=== PATIENT | male | born 1980 | race African-American/Black ===

== ENCOUNTER 2017-02-24 01:55 | Inpatient (IN) | payer OTHER ==
[2017-02-24] VITALS (7 sets, daily range): BP systolic 111–154; BP diastolic 75–107
[~2017-02-24] VITALS: Ht 185.4 cm; Wt 117.5 kg
--- NOTE | ~2017-02-24 | 2DMMODE ---
[facility] [address] [place] [address] 2 D/M-MODE ECHOCARDIOGRAM Name: JOSE MA Room #: 316-P [facility] IN .R.#: [id number] Admission: 02/24/17 Attend Phys: Jeni Loredo Discharge: Date of : 76 Date of Service: 02/25/17 1022 Report #: [id number] THIS REPORT FOR: //name// APPROVED REPORT Study performed: 02/25/2017 08:56:36 EXAM: Comprehensive 2D, Doppler, and color-flow Echocardiogram Patient Location: Echo lab Room #: [facility] Status: routine BSA: 2.37 HR: 80 bpm BP: 149/87 mmHg Rhythm: NSR Other Information Study Quality: Good Indications Cardiomyopathy 2D Dimensions RVDd: 42.88 mm LVEF(%): 31.08 (>50%) IVSd: 14.72 (7-11mm) LVOT Diam: 24.04 (18-24mm) LVDd: 62.62 mm PWd: 15.98 (7-11mm) Ascending Ao: 36.43 (22-36mm) LVDs: 53.24 (25-40mm) Aortic Root: 31.88 mm IVC: 23.00 mm Roberto's LVEF: 31.08 % Volumes Left Atrial Volume (Systole) Single Plane 4CH: 116.50 mL Single Plane 2CH: 101.18 mL LA ESV Index: 49.00 mL/m2 Aortic Valve AoV Peak Jonathan.: 1.27 m/s AO Peak Gr.: 6.41 mmHg LVOT Max P.79 mmHg LVOT Max V: 0.97 m/s MARTÍNEZ Vmax: 3.49 cm2 Mitral Valve E/A Ratio: 4.0 MV Decel. Time: 180.10 ms [facility] [place] [address] 2 D/M-MODE ECHOCARDIOGRAM Name: ANILJOSE Room #: 316-P [facility] IN .R.#: [id number] Admission: 02/24/17 Attend Phys: Jeni Loredo Discharge: Date of : 76 Date of Service: 02/25/17 1022 Report #: [id number] MV E Max Jonathan.: 1.25 m/s MV A Jonathan.: 0.31 m/s MV PHT: 52.23 ms IVRT: 83.04 ms Pulmonary Valve PV Peak Jonathan.: 0.81 m/s PV Peak Gr.: 2.60 mmHg IN End Vmax: 1.92 m/s Pulmonary Vein P Vein S: 0.40 m/s P Vein A: 0.23 m/s P Vein D: 0.53 m/s P Vein A Dur.: 87.7 msec P Vein S/D Ratio: 0.75 Tricuspid Valve TR Peak Jonathan.: 3.38 m/s RAP Estimate: 10.00 mmHg TR Peak Gr.: 45.57 mmHg PA Pressure: 56.00 mmHg Left Ventricle There is global hypokinesis of the left ventricle. Mild to moderate concentric left ventricular hypertrophy. Left ventricular systolic function is severely decreased. LVEF is 25%. Grade IV - fixed restrictive diastolic dysfunction. Right Ventricle Right ventricle is dilated. Right ventricle is mildly hypokinetic. Atria Left atrium is dilated. Right atrium is dilated. Aortic Valve Aortic valve leaflets are normal No aortic regurgitation is present. There is no aortic valvular stenosis. Mitral Valve The mitral valve is normal in structure. Mild mitral regurgitation. No evidence of mitral valve stenosis. Tricuspid Valve The tricuspid valve is normal in structure. Mild tricuspid regurgitation. Pulmonic Valve The pulmonary valve is normal in structure. Trace pulmonic [facility] [address] [place] [address] 2 D/M-MODE ECHOCARDIOGRAM Name: JOSE MA Room #: 316-P [facility] IN .R.#: [id number] Admission: 02/24/17 Attend Phys: Jeni Loredo Discharge: Date of : 76 Date of Service: 02/25/17 1022 Report #: [id number] regurgitation. Great Vessels The aortic root is normal in size. The ascending aorta is normal in size. IVC is dilated and collapses >50% with inspiration. Pericardium There is no pericardial effusion. <Conclusion> Left ventricular systolic function is severely decreased. There is global hypokinesis of the left ventricle. LVEF is 25%. Grade IV - fixed restrictive diastolic dysfunction. Aortic valve leaflets nromal, trileaflet. No aortic regurgitation or stenosis The mitral valve is normal in structure. Mild mitral regurgitation. There is no pericardial effusion. <ELECTRONICALLY SIGNED> By: Alex Monge MD, [facility] 02/25/17 1022 1022 1022 Alex Monge MD, FACC /INF
--- NOTE | ~2017-02-24 | HC ---
[facility] [place] [address] CONSULTATION Name: JOSE MA Room #: 316-P ADM IN M.R.#: [id number] Admission: 02/24/17 Attend Phys: Tavo Castanon MD Discharge: Date of : 76 Report #: [id number] THIS REPORT FOR: //name// CC: MARY physician/PCP Trent Castanon DATE OF SERVICE: 02/24/2017 HISTORY OF PRESENT ILLNESS: This is a very pleasant gentleman who presented to the Emergency Room with complaints of chest discomfort. The patient states that this came on sudden 2 hours ago and was more epigastric in nature and a cramping sensation in the thoracic portion of his back. The patient felt that his back pain merged with the epigastric discomfort and he laid on his stomach for a while without immediate improvement, but did improve over some time. The patient denied any significant associated exertional component. He had been doing quite well prior to that onset. He just had some spicy foods, but he has had that in the past without any issues. He then felt immediate dizzy in the emergency room when he was going out, he became somewhat lightheaded and felt that in his throat and had emesis x 2. He had placard prior to that, but not prior to the onset of symptoms. He denied any exertional chest pain, pressure, tightness or heaviness at all recently. He does have a diagnosis of a non-ischemic cardiomyopathy, but he has had not had any significant workup performed with stress testing or catheterization. He does have hypertension and states he had been taking his medications appropriately. No history of diabetes mellitus. No history of reflux or gastroesophageal reflux disease. PAST MEDICAL HISTORY: 1. Gouty arthritis. 2. Hypertension. 3. Cardiomyopathy with CHF in July. MEDICATIONS: Indocin, Edarbyclor, Coreg, Lasix, Klor-Con and Aldactone. ALLERGIES: NAPROXEN. SOCIAL HISTORY: The patient is single, smokes, consumes alcohol socially. Does not follow a particular exercise regimen or dietary restriction. Electrocardiogram demonstrates normal sinus rhythm with slightly tachycardic rate, non-specific ST T-wave changes. Laboratory demonstrates potassium of 4.1, BUN and creatinine of 13 and 1.2. H and H is 14.2 and 42.9 with platelet count 298,000. PHYSICAL EXAMINATION: [facility] [address] [place] [address] CONSULTATION Name: JOSE MA Room #: 316-P [facility] IN .R.#: [id number] Admission: 02/24/17 Attend Phys: Tavo Castanon MD Discharge: Date of : 76 Report #: [id number] GENERAL: A well-developed, well-nourished male resting comfortably in no acute distress. VITAL SIGNS: Reviewed and noted in the chart. HEENT: Normocephalic, atraumatic. Pupils are equal, round, reactive to light and accommodation. Extraocular muscles are intact. Sclerae and conjunctivae are anicteric. NECK: JVD is normal. Carotid upstrokes are bilaterally symmetrical. No bruits are heard. No thyromegaly. No lymphadenopathy. LUNGS: Clear to auscultation. No wheezes, rhonchi or crackles. No CVA tenderness. CARDIAC: Demonstrates a regular rhythm. Normal first and second heart sounds. No ventricular or atrial gallops, no rubs noted. No murmurs. No lifts or heaves, PMI normal. ABDOMEN: Soft, nontender, nondistended. Normal bowel sounds. EXTREMITIES: Without cyanosis, clubbing or edema. Distal pulses are intact. DTR symmetrical. NEUROLOGIC: Cranial nerves 2-12 are grossly normal and symmetrical. PSYCHIATRIC: Alert, oriented with normal affect. SKIN: Warm and dry. IMPRESSION: 1. Atypical chest pain in an individual that had cardiomyopathy. The patient denied any stress testing, catheterization in view of this. I am going to schedule him for perfusion scan tomorrow, so that we can exclude ischemic regions. His chest pains are very typical in nature, but either way we need to evaluate them most probably. 2. Congestive heart failure. He is on approximate medications, but he has not been carvedilol to 18.75 b.i.d. for 2 weeks and then he will go to 25 mg p.o. b.i.d. We will monitor, so that he does not develop left ventricular decompensation. Echocardiogram will be ordered, so we can further delineate LV function currently. 3. Tobacco abuse and dependence. Discussed with patient the need for smoking cessation and the benefits thereof. We also discussed methods, so that he can be successful at more shortly. 4. Gouty arthritis. Not an issue at this juncture. <ELECTRONICALLY SIGNED> By: Trent Samson MD 02/25/17 0949 2236 0036 Trent Samson MD /nt
--- NOTE | ~2017-02-24 | EKG ---
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 : 1980 Requested By: Moises Carrillo Order Number: [id number] MD: Alex Monge Measurements Intervals [place] Rate: 102 P: 54 NE: 169 QRS: 3 QRSD: 102 T: QT: 363 QTc: 473 Interpretive Statements Sinus tachycardia Probable left atrial enlargement Nonspecific ST and T wave abnormality Compared to ECG 10/19/2016 23:44:28 No significant change was found Electronically Signed On 02-25-2017 8:16:25 CDT by Alex Monge [email or web address] <ELECTRONICALLY SIGNED> By: Alex Monge MD, [facility] 02/25/17 0816 3 3 Alex Monge MD, [facility] /EPI
[~2017-02-24 01:55] MED LIST: ALDACTONE50 MG PO; COREG25 MG PO; EDARBYCLOR 40-1 EACH PO; INDOMETHACIN 5050 MG PO; KLOR-CON 1010 MEQ PO; LASIX 40 MG TAB40 M2 PO; MEDROLDOSEPACK PO; NORCO 10-325 T1 EACH PO
[2017-02-24 02:25] LABS: ABSOLUTE NEUTROPHILS 4.5 thou/uL (1.4-8.2); BASOPHILS 0.9 % (0.0-2.0); EOSINOPHILS 6.9 % (0.0-3.0); HEMATOCRIT 42.9 % (42.0-52.0); HEMOGLOBIN 14.2 gm/dL (14.0-18.0); LYMPHOCYTES 38.3 % (24.0-44.0); MCH 28.7 pg (26.0-34.0); MCHC 33.2 g/dL (28.0-37.0); MCV 86.5 fL (80.0-100.0); PLATELET COUNT 298 thou/uL (150-400); POLYS 45.9 % (36.0-66.0); RBC 4.95 mil/uL (4.50-6.00); RDW 15.9 % (10.5-14.5); WBC 9.7 thou/uL (4.0-11.0)
[2017-02-24 02:27] LABS: MANUAL DIFF NO
[2017-02-24 02:35] LABS: ANION GAP 10 mmol/L (7-16); BUN 13 mg/dL (7-18); CHLORIDE 106 mmol/L (98-107); CO2 26 mmol/L (21-32); CREATININE 1.2 mg/dL (0.7-1.3); GLUCOSE 111 mg/dL (74-106); POTASSIUM 4.1 mmol/L (3.5-5.1); SODIUM 142 mmol/L (136-145)
[2017-02-24 02:44] LABS: ALKALINE PHOSPHATASE 69 U/L (46-116); MAGNESIUM 1.9 mg/dL (1.8-2.4); SGPT 32 U/L (30-65); TOTAL BILIRUBIN 0.3 mg/dL (<0.1-1.0); TOTAL PROTEIN 7.3 g/dL (6.4-8.2); TROPONIN-I < 0.04 ng/mL (<0.04-0.07)
[2017-02-24 02:57] LABS: SGOT 37 U/L (15-37)
[2017-02-24 03:25] LABS: APTT 29.1 Seconds (24.5-32.8); PROTIME 9.6 Seconds (9.3-11.4)
[2017-02-25] VITALS: BP 112/72
[2017-02-25 04:56] LABS: HEMOGLOBIN 12.6 gm/dL (14.0-18.0); MCHC 32.2 g/dL (28.0-37.0); MCV 87.1 fL (80.0-100.0); RBC 4.49 mil/uL (4.50-6.00); WBC 15.3 thou/uL (4.0-11.0)
[2017-02-25 05:00] VITALS: BP 117/79
[2017-02-25 05:04] LABS: CALCIUM 8.9 mg/dL (8.5-10.1); CREATININE 1.1 mg/dL (0.7-1.3); POTASSIUM 3.8 mmol/L (3.5-5.1)
[2017-02-25 07:18] VITALS: BP 119/78
[2017-02-25 15:58] VITALS: BP 104/64
[2017-02-25 20:00] VITALS: BP 122/86
[2017-02-26 08:59] VITALS: BP 115/84
[2017-02-26 18:50] VITALS: BP 115/84
== END 2017-02-26 19:37 | disposition home or self-care (01) | DRG 313 ==
LOC: ER 01:55 → 3N 02:38 → EROBS 02:38 → 3N 03:23 → EROBS 03:23 → 3N 03:25
PROVIDERS: Emergency Medicine; Hospitalist; Internal Medicine
DX: R07.89 Other chest pain (principal); I42.9 Cardiomyopathy, unspecified; I50.42 Chronic combined systolic (congestive) and diastolic (congestive) heart failure; I11.0 Hypertensive heart disease with heart failure; M10.9 Gout, unspecified; F17.210 Nicotine dependence, cigarettes, uncomplicated; K82.8 Other specified diseases of gallbladder; I25.10 Atherosclerotic heart disease of native coronary artery without angina pectoris; L40.9 Psoriasis, unspecified; Z88.8 Allergy status to other drugs, medicaments and biological substances
CPT/HCPCS: 10096

== ENCOUNTER 2017-06-17 01:02 | Emergency (ER) | payer OTHER ==
[~2017-06-17] VITALS: Ht 185.4 cm; Wt 132.4 kg
--- NOTE | ~2017-06-17 | EKG ---
[address] [place] [place] [address] ELECTROCARDIOGRAM REPORT Name: JOSE MA [id number] Admission: 06/17/17 Attend Phys: Discharge: 06/17/17 Date of : 76 Report #: [id number] THIS REPORT FOR: //name// 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
[2017-06-17] MEDS ORDERED: ASPIR 8181 MG PO (01:19)
[2017-06-17] MEDS ORDERED: PRINIVIL20 M1 PO (01:19)
[2017-06-17] MEDS ORDERED: ALLOPURINOL 10100 M1 PO (01:20)
[2017-06-17 01:22] LABS: ABSOLUTE NEUTROPHILS 5.5 thou/uL (1.4-8.2); BASOPHILS 0.8 % (0.0-2.0); EOSINOPHILS 3.6 % (0.0-3.0); HEMATOCRIT 41.2 % (42.0-52.0); LYMPHOCYTES 38.8 % (24.0-44.0); MCH 30.2 pg (26.0-34.0); MCHC 33.9 g/dL (28.0-37.0); MONOCYTES 5.7 % (1.0-8.0); PLATELET COUNT 330 thou/uL (150-400); POLYS 51.1 % (36.0-66.0); RBC 4.63 mil/uL (4.50-6.00); RDW 16.6 % (10.5-14.5); WBC 10.7 thou/uL (4.0-11.0)
[2017-06-17 01:23] LABS: MANUAL DIFF NO
[2017-06-17 01:30] LABS: ANION GAP 14 mmol/L (7-16); BUN 12 mg/dL (7-18); CALCIUM 8.5 mg/dL (8.5-10.1); CHLORIDE 106 mmol/L (98-107); CO2 23 mmol/L (21-32); CREATININE 1.3 mg/dL (0.7-1.3); GLUCOSE 130 mg/dL (74-106); POTASSIUM 3.8 mmol/L (3.5-5.1); SODIUM 143 mmol/L (136-145)
[2017-06-17 01:40] LABS: TROPONIN-I < 0.04 ng/mL (<0.06)
== END 2017-06-17 05:50 | disposition home or self-care (01) ==
LOC: ER 01:02
PROVIDERS: Emergency Medicine
DX: R07.9 Chest pain, unspecified (principal); F17.210 Nicotine dependence, cigarettes, uncomplicated; I10 Essential (primary) hypertension; I50.9 Heart failure, unspecified; I25.2 Old myocardial infarction; Z88.6 Allergy status to analgesic agent

== ENCOUNTER 2019-07-15 06:45 | Inpatient (IN) | payer OTHER ==
[2019-07-15] VITALS (9 sets, daily range): BP systolic 104–151; BP diastolic 59–94
[~2019-07-15] VITALS: Ht 185.4 cm; Wt 114.5 kg
[~2019-07-15 06:45] MED LIST changes: +ALLOPURINOL 10100 M1 PO; +ASPIR 8181 MG PO; +PRINIVIL20 M1 PO
[2019-07-15] MEDS ORDERED: ENTRESTO 24 MG1 EACH PO (07:38)
[2019-07-15 07:39] LABS: ABSOLUTE NEUTROPHILS 5.2 thou/uL (1.4-8.2); BASOPHILS 0.7 % (0.0-2.0); EOSINOPHILS 3.5 % (0.0-3.0); HEMATOCRIT 46.8 % (42.0-52.0); HEMOGLOBIN 15.4 gm/dL (14.0-18.0); LYMPHOCYTES 29.8 % (24.0-44.0); MCH 29.3 pg (26.0-34.0); MCHC 32.9 g/dL (28.0-37.0); MCV 88.9 fL (80.0-100.0); MONOCYTES 8.8 % (1.0-8.0); PLATELET COUNT 309 thou/uL (150-400); POLYS 57.2 % (36.0-66.0); RBC 5.27 mil/uL (4.50-6.00); RDW 14.4 % (10.5-14.5)
[2019-07-15 07:40] LABS: CALCIUM 9.6 mg/dL (8.5-10.1); INR 1.1; POTASSIUM 3.9 mmol/L (3.5-5.1); PROTIME 11.1 Seconds (9.3-11.4)
[2019-07-15 07:46] LABS: ALBUMIN 4.4 g/dL (3.4-5.0); TOTAL BILIRUBIN 0.6 mg/dL (<0.1-1.0); TOTAL PROTEIN 8.4 g/dL (6.4-8.2)
--- NOTE | 2019-07-15 10:45 | NUR ---
TO UNIT FROM EP LAB/PACU BY BED, REPORT FROM GISELLA ZAIDI, FAMILY IN TOW. DENIES PAIN. INCISION SITE LEFT CHEST WELL APPORXIMATED, OPEN TO AIR, CLOSED WITH DERMABOND AND STERRY STRIPS. ORIENTED TO UNIT AND ROOM. SR PER TELE. WILL CONTINUE TO FOLLOW CLOSELY.
[2019-07-16] VITALS (11 sets, daily range): BP systolic 107–141; BP diastolic 63–87
--- NOTE | 2019-07-16 05:46 | NUR ---
ASSUMED PT CARE AT 1900, PT IS ALERT AND ORIENTEDX4, ASSESSMENTS CHARTED, DENIES SOB, HEADACHE OR LIGHTHEADEDNESS, COMPLAINS OF NON-CARDIAC LEFT CHEST PAIN, PAIN MEDICATION GIVED PRN ORDERED, SURGICAL SITE REMAIN INTACT WITH NO DRAINAGE, UP TO THE BATHROOM WITHOUT DIFFICULTY, WILL CONTINUE TO MONITOR
--- NOTE | 2019-07-16 18:33 | NUR ---
PT CARE ASSUMED APPROX 0700. PT DENIES PAIN AND SOA. VSS. UP WITH SBA. BEDREST AT THIS TIME POST DEVICE REVISION. PT TOLERATED PROCEDURE WELL PER EP LAB REPORT. STERILE DRESSING TO LEFT CHEST IS C/D/I. NO DISTRESS NOTED.
[2019-07-17] VITALS: BP 96/59
[2019-07-17 04:29] VITALS: BP 112/70
--- NOTE | 2019-07-17 05:03 | NUR ---
ASSESSMENTS CHARTED, MEDS GIVEN CHARTED. PATIENT ON STRICT BEDREST DURING SHIFT AFTER LEAD REVISIONS PROCEDURE EARLIER IN THE DAY. PACEMAKER SITE IS COVERED WITH SURGICAL DRESSING OF GAUZE. PATIENT A-PACED ON TELEMETRY, LUNGS ARE CLEAR ON ROOM AIR. USING URINAL. PATIENT STATED AT START OF SHIFT THAT HE DOES NOT LIKE TAKING PAIN MEDS EVEN THOUGH PAIN WAS 5/10. WHEN HE WAS READY TO GO ASLEEP, HE REQUESTED PAIN MED. GIVEN CHARTED. PLAN OF CARE IS FOR AM CHEST XRAY, PACEMAKER INTERREGATION, THEN HOME IF ALL IS WELL.
[2019-07-17 08:00] VITALS: BP 117/77
[2019-07-17 08:05] VITALS: BP 117/77
[2019-07-17 11:18] VITALS: BP 117/77
[2019-07-17 11:19] VITALS: BP 117/77
--- NOTE | 2019-07-23 13:03 | P ---
[facility] [place] [address] [place] [address] PROCEDURE REPORT Name: JOSE MA Room #: 215-P [facility] IN M.R.#: [id number] Admission: 07/16/19 Attend Phys: Mono Cruz MD Discharge: 07/17/19 Date of : 76 Report #: [id number] THIS REPORT FOR: //name// CC: FAM unknown Mono Cruz DATE OF SERVICE: 07/15/2019 PREOPERATIVE DIAGNOSIS: Nonischemic cardiomyopathy. POSTOPERATIVE DIAGNOSIS: Nonischemic cardiomyopathy. PROCEDURES PERFORMED: Dual-chamber ICD implantation. HISTORY OF PRESENT ILLNESS: The patient is a 38-year-old male with a history of a nonischemic cardiomyopathy, class 2-3 heart failure symptoms, who has been on optimal medical therapy and his EF is less than 35%. He meets criteria for ICD implantation for primary prevention of sudden cardiac . He also has documented symptomatic sinus bradycardia and will also have a dual chamber device placed. ANESTHESIA: The patient underwent MAC anesthesia with no anesthesia related complications. DESCRIPTION OF PROCEDURE: The patient underwent informed consent. We discussed the details of the procedure including the risks, which include but not limited to bleeding, infection, vascular damage, cardiac perforation and pneumothorax. I have reviewed with him the [employer] shared decision form for ICD implantation and he understood this and agreed with proceeding. The patient was brought to the EP laboratory in a fasting and sedated state, prepped and draped in a sterile fashion. He underwent a venogram showing patency of left axillary vein and received IV vancomycin for antibiotic prophylaxis. His venogram showed that his subclavian vein was slightly higher than usual. Next, I injected lidocaine at the incision site. Incision was made, pocket was created over the prepectoral fascia and access was obtained once to the left axillary vein. A second access turned out to be quite challenging, I hit the artery 2 or 3 times and therefore I did the double wire technique via the sheath and then obtained [address] Next, I placed a lead into the right ventricular apex and a lead into the right atrial appendage both with adequate pacing and sensing thresholds. Leads were sutured to prepectoral fascia and access was obtained twice to the prepectoral fascia. Next, the device was connected, tested and found to be functioning normally, placed in the pocket, irrigated the pocket with vancomycin. The pocket was closed in 3 layers using 2-0 for the deep layer, 3-0 for the mid layer, and surgical glue for the outer skin layer. Instead of glue, I used Steri-Strips as [facility] [address] [place] [address] PROCEDURE REPORT Name: JOSE MA Room #: 215-P [facility]#: [id number] Admission: 07/16/19 Attend Phys: Mono Cruz MD Discharge: 07/17/19 Date of : 76 Report #: [id number] he had pretty thick skin that was difficult to oppose at the edges. The patient awoke neurologically and hemodynamically intact. No complications and no significant bleed. The implanted device was a [employer] model #IS313833O, serial #[id number]. Atrial lead, [employer] model #2088TC, 52 cm, serial #[id number] and the RV lead was a [employer] Durata model #7122Q, 58 cm, serial #[id number]. The atrial lead demonstrated P-wave of 4.9 millivolts, pacing impedance of 640 ohms, pacing threshold 0.5 volts at 0.5 milliseconds. The RV lead demonstrated R-wave of 11.7 millivolts, pacing impedance of 540 ohms, pacing threshold of 0.5 volts at 0.5 milliseconds. The device was programmed to the DDDR 60-130 mode. The VT zone was set at 180-220 beats per minute followed by a max output shocks. VF zone was set greater than 220 beats per minute with ATP while charging followed by max output shocks. CONCLUSIONS: 1. Successful dual-chamber ICD implantation. 2. Satisfactory atrial and ventricular pacing and sensing thresholds. <ELECTRONICALLY SIGNED> By: Mono Cruz MD 07/23/19 1303 0926 1057 Mono Cruz MD /nt
--- NOTE | 2019-07-23 13:03 | P ---
[facility] [place] [address] [place] [address] PROCEDURE REPORT Name: JOSE MA Room #: 215-P [facility] IN M.R.#: [id number] Admission: 07/16/19 Attend Phys: Mono Cruz MD Discharge: 07/17/19 Date of : 76 Report #: [id number] THIS REPORT FOR: //name// CC: FAM unknown Mono Cruz ICD LEAD REVISION HISTORY: The patient is 38-year-old status post ICD implantation yesterday. Today, he has decreased R waves and higher RV pacing thresholds. He is here for lead revision. ANESTHESIA: The patient underwent MAC anesthesia with no anesthesia related complications. DESCRIPTION OF PROCEDURE: The patient underwent informed consent. We discussed the details of the procedure including the risks, which include but not limited to bleeding, infection. The patient understood these risks and is willing to proceed. The patient was brought to EP laboratory in fasting and sedated state, prepped and draped in sterile fashion. He received IV antibiotics. I then injected lidocaine at the incision site. The incision was reopened. I removed all the old sutures. Next, I cut the sutures from the RV lead under fluoroscopy, it appeared that the slack was somewhat back but the atrial lead position looked fine. I then repositioned the lead at the new spot with good pacing and sensing thresholds. I left a good amount of slack in the lead. I sutured the suture sleeve x 3 to ensure that he cannot move the lead again. I then connected the device back to the leads, they were tested and found to be functioning normally. I placed an antibiotic pouch TYRX into the pocket and then I closed the pocket in 2 layers using 2-0 for the deep layer, 3-0 for the middle layer and surgical glue at the outer skin layer. There were no procedure related complications. The same device and leads were utilized as of yesterday. The P waves were 5 millivolts, pacing impedance 630 ohms and pacing threshold was 0.75 volts at 0.5 milliseconds. The RV lead demonstrated an R-wave of 11.7 millivolts, pacing impedance of 650 ohms and a pacing threshold of 0.5 milliseconds. The device was programmed back to its nominal settings. CONCLUSION: 1. Successful lead revision. 2. Successful implantation of an antibiotic TYRX pouch. <ELECTRONICALLY SIGNED> By: Mono Cruz MD 07/23/19 1303 1458 2132 Mono Cruz MD /nt
[2019-07-28] MEDS ORDERED: PANTOPRAZOLE SO40 M1 PO (14:23)
[2019-07-28] MEDS ORDERED: ACETAMINOPHEN325 M1 PO (14:23)
[2019-07-28] MEDS ORDERED: KEFLEX500 M1 PO (14:59)
== END 2019-07-17 12:50 | disposition home or self-care (01) | DRG 227 ==
LOC: CATH 06:45 → 2N 10:24 → CATH 10:53 → 2N 07-16 13:15
PROVIDERS: ADMIT Internal Medicine Cardiovascular Disease
DX: I25.5 Ischemic cardiomyopathy (principal); T82.120A Displacement of cardiac electrode, initial encounter; I49.5 Sick sinus syndrome; Y83.1 Surgical operation with implant of artificial internal device as the cause of abnormal reaction of the patient, or of later complication, without mention of misadventure at the time of the procedure; Y92.230 Patient room in hospital as the place of occurrence of the external cause; E66.9 Obesity, unspecified; I11.0 Hypertensive heart disease with heart failure; I50.9 Heart failure, unspecified; M10.9 Gout, unspecified; F17.210 Nicotine dependence, cigarettes, uncomplicated; Z88.8 Allergy status to other drugs, medicaments and biological substances; Z68.33 Body mass index [BMI] 33.0-33.9, adult; I25.2 Old myocardial infarction; Z82.49 Family history of ischemic heart disease and other diseases of the circulatory system

== ENCOUNTER 2019-07-25 22:27 | Emergency (ER) | payer OTHER ==
[~2019-07-25] VITALS: Ht 185.4 cm; Wt 102.1 kg
[~2019-07-25 22:27] MED LIST changes: +ENTRESTO 24 MG1 EACH PO
[2019-07-26 00:37] VITALS: BP 109/55
[2019-07-26] MEDS ORDERED: SPIRONOLACTONE50 MG PO (17:05)
[2019-07-26] MEDS ORDERED: CRESTOR40 MG PO (17:05)
[2019-07-26] MEDS ORDERED: ENTRESTO 49 MG1 EACH PO (17:05)
[2019-07-26] MEDS ORDERED: ALLOPURINOL 10100 M3 PO (17:05)
[2019-07-26] MEDS ORDERED: COREG25 M1 PO (17:06)
== END 2019-07-26 00:43 | disposition home or self-care (01) ==
LOC: ER 22:27
DX: T82.837A Hemorrhage due to cardiac prosthetic devices, implants and grafts, initial encounter (principal); I11.0 Hypertensive heart disease with heart failure; I50.9 Heart failure, unspecified; M10.9 Gout, unspecified; F17.210 Nicotine dependence, cigarettes, uncomplicated; Z88.8 Allergy status to other drugs, medicaments and biological substances; Y83.8 Other surgical procedures as the cause of abnormal reaction of the patient, or of later complication, without mention of misadventure at the time of the procedure; Y92.89 Other specified places as the place of occurrence of the external cause

== ENCOUNTER → 2019-08-27 | Outpatient (CLI) | payer OTHER ==
[~2019-08-27] MED LIST changes: +ACETAMINOPHEN325 M1 PO; +ALLOPURINOL 10100 M3 PO; +COREG25 M1 PO; +CRESTOR40 MG PO; +ENTRESTO 49 MG1 EACH PO; +KEFLEX500 M1 PO; +PANTOPRAZOLE SO40 M1 PO; +SPIRONOLACTONE50 MG PO
== END ==
LOC: SJCVC 09:57
DX: R94.31 Abnormal electrocardiogram [ECG] [EKG] (principal); I11.0 Hypertensive heart disease with heart failure; I50.42 Chronic combined systolic (congestive) and diastolic (congestive) heart failure; I42.0 Dilated cardiomyopathy; E78.5 Hyperlipidemia, unspecified; F17.200 Nicotine dependence, unspecified, uncomplicated; Z79.899 Other long term (current) drug therapy

== ENCOUNTER → 2019-10-21 | Outpatient (CLI) | payer OTHER | LOC: SJCVC 13:43 | DX: I49.9 Cardiac arrhythmia, unspecified (principal); R94.31 Abnormal electrocardiogram [ECG] [EKG]; T82.9XXA Unspecified complication of cardiac and vascular prosthetic device, implant and graft, initial encounter; I42.8 Other cardiomyopathies; I11.0 Hypertensive heart disease with heart failure; I50.42 Chronic combined systolic (congestive) and diastolic (congestive) heart failure; E78.5 Hyperlipidemia, unspecified; E66.9 Obesity, unspecified; F17.210 Nicotine dependence, cigarettes, uncomplicated; Z82.49 Family history of ischemic heart disease and other diseases of the circulatory system; Z95.810 Presence of automatic (implantable) cardiac defibrillator; Z79.899 Other long term (current) drug therapy; Y83.8 Other surgical procedures as the cause of abnormal reaction of the patient, or of later complication, without mention of misadventure at the time of the procedure; Y92.89 Other specified places as the place of occurrence of the external cause ==

== ENCOUNTER → 2020-02-29 | Outpatient (CLI) | payer OTHER | LOC: SJCVC 10:49 | PROVIDERS: ATTEND Internal Medicine | DX: R94.31 Abnormal electrocardiogram [ECG] [EKG] (principal); R00.1 Bradycardia, unspecified; I11.0 Hypertensive heart disease with heart failure; I50.42 Chronic combined systolic (congestive) and diastolic (congestive) heart failure; I42.0 Dilated cardiomyopathy; E78.5 Hyperlipidemia, unspecified; F17.210 Nicotine dependence, cigarettes, uncomplicated; Z79.899 Other long term (current) drug therapy ==

== ENCOUNTER → 2020-03-07 | Outpatient (CLI) | payer OTHER | LOC: LAB 08:43 | PROVIDERS: ATTEND Internal Medicine Cardiovascular Disease | DX: Z01.812 Encounter for preprocedural laboratory examination (principal); Z20.828 Contact with and (suspected) exposure to other viral communicable diseases ==

== ENCOUNTER 2020-03-10 09:25 | Observation (INO) | payer OTHER ==
[~2020-03-10] VITALS: Ht 185.4 cm; Wt 121.6 kg
[2020-03-10 10:16] VITALS: BP 130/90
[2020-03-10 10:20] LABS: ABSOLUTE NEUTROPHILS 4.8 thou/uL (1.4-8.2); BASOPHILS 0.4 % (0.0-2.0); EOSINOPHILS 5.3 % (0.0-3.0); HEMATOCRIT 41.9 % (42.0-52.0); HEMOGLOBIN 13.7 gm/dL (14.0-18.0); LYMPHOCYTES 25.6 % (24.0-44.0); MCH 31.1 pg (26.0-34.0); MCHC 32.8 g/dL (28.0-37.0); MCV 94.8 fL (80.0-100.0); MONOCYTES 8.4 % (1.0-8.0); PLATELET COUNT 290 thou/uL (150-400); POLYS 60.3 % (36.0-66.0); RBC 4.42 mil/uL (4.50-6.00); RDW 14.8 % (10.5-14.5); WBC 7.9 thou/uL (4.0-11.0)
[2020-03-10 10:26] LABS: CALCIUM 8.8 mg/dL (8.5-10.1); CREATININE 0.8 mg/dL (0.7-1.3)
[2020-03-10 10:32] LABS: ALBUMIN 3.9 g/dL (3.4-5.0); TOTAL BILIRUBIN 0.3 mg/dL (0.2-1.0); TOTAL PROTEIN 7.3 g/dL (6.4-8.2)
[2020-03-10 10:33] LABS: APTT 35.2 Seconds (24.5-32.8); PROTIME 10.4 Seconds (9.3-11.4)
[2020-03-10 14:25] VITALS: BP 141/95
--- NOTE | 2020-03-10 15:26 | NUR ---
pt new to [facility] today after have cardiac device placement. noted cardiac education with pt mom on arm restriction. no anticipated needs. dcp home with mom.
--- NOTE | 2020-03-10 16:33 | NUR ---
ASSESSMENT CHARTED - MEDS PER AUG - PT TO THE UNIT POST PACEMAKER PLACEMENT IN THE RIGHT SIDE OF CHEST. NO CO'S OF PAIN OR NAUSEA. NELSON DIET AND FLUIDS. REMAINS ON BEDREST WITH HOB ELEVATED. VSS. NO CO'S AT THE PRESENT TIME. PT ORUIENTED TO ROOM AND BEDSPACE.
[2020-03-10 19:37] VITALS: BP 133/76
[2020-03-11 00:25] VITALS: BP 118/67
[2020-03-11 04:27] VITALS: BP 116/69
--- NOTE | 2020-03-11 06:20 | NUR ---
ASSUMED CARE OF PT AT 1900; ICD/PACEMAKER SITE WITH DERMABOND AND REMAINS SEALED AND INTACT AND NO DRAINAGE NOTED; RESTING QUIETLY WITHOUT ANY C/O OF PAIN; VSS AND TELEMETRY SHOWS SA/SB/SR; PROGRESSING WELL TOWARDS D/C GOALS; CONTINUE TO ASSESS CLOSELY.
[2020-03-11 08:42] VITALS: BP 130/75
[2020-03-11 10:46] VITALS: BP 130/756
--- NOTE | 2020-03-11 12:05 | NUR ---
PT ASSESSED AT START OF SHIFT. DOING WELL. MINIMAL DISCOMFORT AROUND IMPLANT AND DECLINED TYLENOL. IMMOBILIZER IN PLACE. CXR TAKEN AND NEGATIVE. SR ON MONITOR. DISCHARGE INSTRUCTIONS GIVEN TO PT. MOTHER HERE TO PICKUP PT AT THIS TIME.
--- NOTE | 2020-03-13 08:14 | P ---
[facility] [place] [address] [place] [address] PROCEDURE REPORT Name: JOSE MA Room #: 201-P [facility] M..#: [id number] Admission: 03/10/20 Attend Phys: Mono Cruz MD Discharge: 03/11/20 Date of : 76 Report #: [id number] THIS REPORT FOR: cc: MARY - Digna family physician/PCP MARY - Digna family physician/PCP Mono Cruz MD ~ CC: MARY physician/PCP Mono Cruz DATE OF SERVICE: 03/10/2020 PROCEDURE: ICD implantation. PREOPERATIVE DIAGNOSIS: Nonischemic cardiomyopathy. POSTOPERATIVE DIAGNOSIS: Nonischemic cardiomyopathy. HISTORY: The patient is 39 years old, here for reimplantation of an ICD for primary prevention of sudden cardiac . ANESTHESIA: The patient underwent MAC anesthesia with no anesthesia related complications. DESCRIPTION OF PROCEDURE: The patient underwent informed consent. We discussed the details of the procedure including the risks, which include but not limited to bleeding, infection, vascular damage, cardiac perforation and pneumothorax. We emphasized the importance of arm restrictions to prevent his pocket from reopening. He and his mother reported that he would be compliant ____. The patient was brought to EP laboratory in fasting and sedated state, prepped and draped in sterile fashion, received IV antibiotics and underwent a venogram showing patency of the axillary vein. Next, lidocaine was injected below the level of the right clavicle. Incision was made, pocket was created over the prepectoral fascia and access was obtained once to the right axillary vein using the extrathoracic approach with sheaths positioned using the modified Seldinger technique and then the lead was positioned in the right ventricular apex. A long lead was used despite this being a right-sided implant as he had a very large heart. This had adequate pacing and sensing thresholds. I placed a good amount of slack in the leads. Lead was sutured to the prepectoral fascia using Ethibond suture and the pocket was irrigated. Device was connected, placed in the pocket. Pocket was closed in 3 layers using 2-0 for the deep layer, 3-0 for the middle layer and 4-0 for the subcuticular layer. Surgical glue was placed to the outer skin layer. The patient awoke neurologically and hemodynamically intact. No complications ____ significant bleeding. The implanted device was a [employer], model #YMXH5M3, serial #[id number]. [facility] [address] [place] [address] PROCEDURE REPORT Name: JOSE MA Room #: 201-P [facility] Elizabeth M.Ho.#: [id number] Admission: 03/10/20 Attend Phys: Mono Cruz MD Discharge: 03/11/20 Date of : 76 Report #: [id number] RV lead was a [employer] model #6947, 62 cm, serial #[id number]. The ventricular lead demonstrated R waves of 9.7 millivolts, pacing impedance 608 ohms, pacing threshold 0.4 volts at 0.5 milliseconds and the device was programmed with a VT zone from 200-240 beats per minute with 3 rounds of burst followed by 3 rounds of ramp followed by max output shocks. The VF zone was set at greater than 240 beats per minute with ATP while charging followed by max output shocks. CONCLUSIONS: 1. Successful single chamber ICD implantation. 2. Satisfactory ventricular pacing and sensing thresholds. <ELECTRONICALLY SIGNED> By: Mono Cruz MD 03/13/20 0814 1341 1455 Mono Cruz MD /nt
== END 2020-03-11 12:12 | disposition home or self-care (01) ==
LOC: CATH 09:25 → 2N 14:53 → CATH 15:42 → 2N 03-11 12:12
PROVIDERS: ADMIT Internal Medicine Cardiovascular Disease; ATTEND Internal Medicine Cardiovascular Disease
DX: I42.8 Other cardiomyopathies (principal); I11.0 Hypertensive heart disease with heart failure; I50.9 Heart failure, unspecified; I25.10 Atherosclerotic heart disease of native coronary artery without angina pectoris; I25.2 Old myocardial infarction; M10.9 Gout, unspecified; Z79.899 Other long term (current) drug therapy

== ENCOUNTER → 2020-08-30 | Outpatient (CLI) | payer OTHER | LOC: SJCVCIMAG 08-25 09:38 | PROVIDERS: ATTEND Internal Medicine | DX: I11.0 Hypertensive heart disease with heart failure (principal); I50.42 Chronic combined systolic (congestive) and diastolic (congestive) heart failure; I42.0 Dilated cardiomyopathy; E78.5 Hyperlipidemia, unspecified; Z95.810 Presence of automatic (implantable) cardiac defibrillator; Z88.8 Allergy status to other drugs, medicaments and biological substances ==

== ENCOUNTER 2021-02-12 02:01 | Emergency (ER) | payer OTHER ==
[~2021-02-12] VITALS: Ht 185.4 cm; Wt 125.2 kg
[2021-02-12 03:35] LABS: ABSOLUTE NEUTROPHILS 2.1 thou/uL (1.4-8.2); BASOPHILS 0.4 % (0.0-2.0); EOSINOPHILS 3.9 % (0.0-3.0); HEMATOCRIT 40.8 % (42.0-52.0); HEMOGLOBIN 13.7 gm/dL (14.0-18.0); MCH 31.2 pg (26.0-34.0); MCHC 33.6 g/dL (28.0-37.0); MONOCYTES 9.6 % (1.0-8.0); PLATELET COUNT 213 thou/uL (150-400); POLYS 45.1 % (36.0-66.0); RBC 4.39 mil/uL (4.50-6.00); RDW 14.4 % (10.5-14.5); WBC 4.6 thou/uL (4.0-11.0)
[2021-02-12 03:48] LABS: CALCIUM 8.4 mg/dL (8.5-10.1); CREATININE 1.1 mg/dL (0.7-1.3); POTASSIUM 3.8 mmol/L (3.5-5.1)
[2021-02-12 03:51] LABS: ALBUMIN 3.6 g/dL (3.4-5.0); TOTAL BILIRUBIN 0.3 mg/dL (0.2-1.0)
[2021-02-12 05:24] LABS: URINE BILIRUBIN NEGATIVE (Negative); URINE BLOOD NEGATIVE (Negative); URINE CLARITY CLEAR; URINE COLOR YELLOW; URINE GLUCOSE-RANDOM* NEGATIVE (Negative); URINE KETONES NEGATIVE (Negative); URINE LEUKOCYTES-REFLEX NEGATIVE (Negative); URINE NITRITE-REFLEX NEGATIVE (Negative); URINE PROTEIN (DIPSTICK) NEGATIVE (Negative); URINE SPECIFIC GRAVITY >= 1.030 (1.005-1.035); URINE UROBILINOGEN 0.2 E.U./dl (0.2-1.0)
[2021-02-12] MEDS ORDERED: REGLAN 5 MG TAB5 MG PO (05:52)
[2021-02-12] MEDS ORDERED: PEPCID20 MG PO (05:52)
[2021-02-12 05:53] VITALS: BP 122/78
--- NOTE | 2021-02-12 07:31 | EKG ---
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 <ELECTRONICALLY SIGNED> By: Arpit Garcia MD, FACC 02/12/21 [id number] Arpit Garcia MD, [facility] /EPI
== END 2021-02-12 05:58 | disposition home or self-care (01) ==
LOC: ER 02:01
PROVIDERS: Emergency Medicine
DX: R10.13 Epigastric pain (principal); R11.2 Nausea with vomiting, unspecified; I11.0 Hypertensive heart disease with heart failure; I50.9 Heart failure, unspecified; M10.9 Gout, unspecified; I25.2 Old myocardial infarction; F17.210 Nicotine dependence, cigarettes, uncomplicated; Z88.6 Allergy status to analgesic agent; Z79.899 Other long term (current) drug therapy; Z95.0 Presence of cardiac pacemaker

== ENCOUNTER → 2021-03-05 | Outpatient (CLI) | payer OTHER ==
[~2021-03-05] MED LIST changes: +PEPCID20 MG PO; +REGLAN 5 MG TAB5 MG PO
== END ==
LOC: SJCVC 13:55
PROVIDERS: ATTEND Internal Medicine
DX: R94.31 Abnormal electrocardiogram [ECG] [EKG] (principal); I34.0 Nonrheumatic mitral (valve) insufficiency; I42.0 Dilated cardiomyopathy; I11.0 Hypertensive heart disease with heart failure; I50.42 Chronic combined systolic (congestive) and diastolic (congestive) heart failure; E78.5 Hyperlipidemia, unspecified; F17.200 Nicotine dependence, unspecified, uncomplicated; F17.210 Nicotine dependence, cigarettes, uncomplicated; Z95.810 Presence of automatic (implantable) cardiac defibrillator; Z79.899 Other long term (current) drug therapy; Z72.89 Other problems related to lifestyle